=== PATIENT | female | born 1990 | race Caucasian/White ===

== ENCOUNTER 2018-02-15 11:36 | Outpatient (CLI) | END 2018-02-15 14:20 | disposition home or self-care (01) ==

== ENCOUNTER 2018-02-16 12:21 | Outpatient (CLI) | END 2018-02-16 15:15 | disposition home or self-care (01) ==

== ENCOUNTER 2018-02-18 13:08 | Outpatient (CLI) | END 2018-02-18 15:55 | disposition home or self-care (01) ==

== ENCOUNTER 2018-03-01 23:40 | Inpatient (IN) | END 2018-03-04 20:30 | disposition home or self-care (01) | DRG 774 ==